=== PATIENT | female | born 1990 | race Caucasian/White ===

== ENCOUNTER 2017-04-07 06:23 | Observation (INO) | payer OTHER ==
[~2017-04-07 06:23] MED LIST: DEXAMETHASONE 10 MG/ML VIAL IVP ONE
[2017-04-07] MEDS ORDERED: LIDOCAINE 1% 5 ML SDV ID PRN (07:24)
[2017-04-07] MEDS ORDERED: LR 1,000 ML IV ONE (07:24)
[2017-04-07] MEDS ORDERED: LIDO/EPI 1% **Not for Epidural 20 ML MDV ONE (07:45)
[2017-04-07] MEDS ORDERED: PROPOFOL 200 MG/20 ML VIAL ONE (07:52)
[2017-04-07] MEDS ORDERED: LIDOCAINE 2% 5 ML SDV ONE ×2 (07:52→10:08)
[2017-04-07] MEDS ORDERED: ROCURONIUM 50 MG/5 ML VIAL ONE (07:53)
[2017-04-07] MEDS ORDERED: fentaNYL 100 MCG/2 ML INJ ONE ×4 (07:54→12:06)
[2017-04-07] MEDS ORDERED: levOFLOXACIN 500 MG/DEXTROSE 100 ML IV ONE (08:00)
[2017-04-07] MEDS ORDERED: MIDAZOLAM 2 MG/2 ML VIAL ONE (08:01)
[2017-04-07] MEDS ORDERED: HYDROCOD/APAP 7.5/325 IN 15ML UDCUP PO PRN (08:10)
[2017-04-07] MEDS ORDERED: ONDANSETRON 4 MG/2 ML VIAL IVP PRN (08:10)
[2017-04-07] MEDS ORDERED: OXYCODONE/APAP 5/325 TAB PO PRN (08:10)
[2017-04-07] MEDS ORDERED: D5W 1/2 NS W/ 20 KCl/L 1,000 ML IV SCH (08:15)
[2017-04-07] MEDS ORDERED: ONDANSETRON 4 MG/2 ML VIAL ONE ×2 (08:36→10:43)
[2017-04-07] MEDS ORDERED: DEXAMETHASONE 4 MG/ML VIAL ONE ×2 (08:36→11:16)
[2017-04-07] MEDS ORDERED: PROMETHAZINE HCL 25 MG/ML INJ ONE (11:16)
[2017-04-07] MEDS ORDERED: METOCLOPRAMIDE 10 MG/2 ML VIAL ONE (11:16)
--- NOTE | 2017-04-07 12:35 | GOP ---
[f rep st] OPERATIVE REPORT DATE OF OPERATION: 04/07/2017 SURGEON: Supa Silva MD ANESTHESIA: General endotracheal. PREOPERATIVE DIAGNOSIS: Thyroid nodule. POSTOPERATIVE DIAGNOSIS: Thyroid nodule. PROCEDURE PLANNED: Total thyroidectomy with possible paratracheal node dissection. PROCEDURE PERFORMED: Total thyroidectomy. FINDINGS: Thyroid lesion frozen section consistent with benign follicular lesion. ESTIMATED BLOOD LOSS: 50 mL. DESCRIPTION OF PROCEDURE: The patient was placed on the operating table in the supine position. After induction of adequate general endotracheal anesthesia, sterile draping was performed. A shoulder roll was placed beneath the patient' s shoulders to extend the neck. Once sterile prep and drape had been performed , infiltration of the area surrounding the proposed incision with 1% lidocaine with 1:100,000 parts epinephrine was performed. An incision was then planned and created, extending approximately 3 cm to either side of the midline. The incision was carried down through the subcutaneous tissues and then through the platysma muscle. Flaps were elevated superiorly and inferiorly in a subplatysmal plane, widely exposing the thyroid region. The vertical midline of the neck was identified. The soft tissues of vertical midline were divided using the Bovie electrocautery. Dissection proceeded further deeply. The nodule of the thyroid isthmus was encountered. Initially, attention was directed to the left thyroid lobe. The strap muscles were reflected off the left thyroid lobe. Further superiorly, the superior vascular pedicle was encountered. This was clamped, cut. The proximal portion was tied with a 2-0 silk suture ligature. The distal portion was tied with a 2- 0 silk tie. Dissection then proceeded along the lateral and posterior aspect of the thyroid in a plane immediately superficial to the thyroid fascia. This allowed for visualization of a least 1 parathyroid gland, which was reflected off the thyroid, maintaining its vascularity. The recurrent laryngeal nerve was identified in the tracheoesophageal groove as it passed the cricoarytenoid joint. This was dissected proximally and distally, keeping the nerve under direct visualization and dividing the soft tissues anterior to this. The soft the tissues of ligament of [place]ays were treated with bipolar electrocautery and sharply divided. The inferior vascular pedicle was then encountered. This clamped, cut, and tied with 2-0 silk ties. Dissection of the thyroid off the trachea was then performed using the Bovie electrocautery. Dissection proceeded past the midline. Then at this point, the left thyroid lobe in continuity with the thyroid nodule was dissected. The thyroid isthmus was then clamped just to the right of the thyroid nodule and the left thyroid lobe with thyroid nodule were sent for frozen section evaluation. This was subsequently returned as follicular lesion, favor benign. The right thyroid lobe was then addressed. The strap musculature was reflected off the right thyroid lobe. Dissection then proceeded further posteriorly. The superior vascular pedicle was encountered. This was clamped, cut. The proximal portion was tied with a 2-0 silk suture ligature. The distal portion was tied with a 2-0 silk tie. During this dissection, a parathyroid gland was encountered and this was dissected and left in situ, maintaining its vascular integrity superiorly. The interior vascular pedicle was encountered. This was clamped, cut, and tied with 2-0 silk ties. Dissection in an immediately supracapsular plane allowed for reflection of further parathyroid off the right thyroid lobe and then in the tracheoesophageal groove the recurrent laryngeal nerve was identified. This was dissected from proximal to distal, again maintaining its integrity and keeping the nerve under direct visualization. The soft tissues of ligament of [place]ays were treated with bipolar electrocautery and then sharply divided. This allowed reflection of the right thyroid lobe off the trachea. Dissection in this region was performed using the Bovie electrocautery and then the right thyroid lobe was delivered. The wound was then reexamined. A number of small bleeders were encountered. These were treated with the bipolar electrocautery. At this point, a 10-L[place] Ryan-Castaneda drain was placed into the wound and sutured into place with 2-0 silk suture ligature. The strap muscles were then reapproximated in the vertical midline utilizing 3-0 Vicryl sutures. The deep layer closure of the wound utilizing interrupted 4-0 Monocryl sutures was performed and 5-0 Prolene was used to perform skin closure. At this point, a sterile pressure dressing was applied after the neck had been cleansed. The patient was then awakened, transferred to postanesthesia recovery in stable condition. FLUIDS REPLACED: 750 mL. COMPLICATIONS: None. /[id number]/MODL MTDD
[2017-04-07] MEDS: DEXAMETHASONE 4 MG/ML VIAL IVP SCH ×2 (14:48→21:52)
[2017-04-07 16:28] LABS: IONIZED CALCIUM 1.11 MMOL/L (1.12-1.30)
--- NOTE | 2017-04-07 17:10 | SOAPPROG ---
SOAP Progress Note Assessment/Plan: pt s/p total thyroidectomy today. Ca stable at 1.11. No numbness or tingling. voice strong. Dressing in palce. Serous drainage in bulb. Plan:Pt seen by Dr. Silva. Doing well post op. 04/07/17 17:08 Objective: Vital Signs Temp Pulse Resp BP Pulse Ox 36.6 C 107 H 16 111/77 99 04/07/17 16:17 04/07/17 16:17 04/07/17 16:17 04/07/17 16:17 04/07/17 16:17 04/06/17 04/07/17 04/08/17 05:59 05:59 05:59 Intake Total 1500 Output Total 1090 Balance 410 ICD10 Worksheet Patient Problems: Problems Problem Status Onset Thyroid adenoma Acute - ICD10 Problem Qualifiers (1) Thyroid adenoma
[2017-04-07 19:03] VITALS: RESP 14
[2017-04-07] MEDS: levETIRAcetam 500 MG TAB PO SCH (20:37)
[2017-04-07 21:55] LABS: IONIZED CALCIUM 1.12 MMOL/L (1.12-1.30)
[2017-04-08 05:25] LABS: IONIZED CALCIUM 1.07 MMOL/L (1.12-1.30)
[2017-04-08] MEDS: levETIRAcetam 500 MG TAB PO SCH (06:18)
[2017-04-08] MEDS: DEXAMETHASONE 4 MG/ML VIAL IVP SCH (06:19)
[2017-04-08 08:11] VITALS: BP 90/70; PULSE 106; TEMP 98; O2SAT 96
--- NOTE | 2017-04-08 08:21 | SOAPPROG ---
SOAP Progress Note Assessment/Plan: pt s/p total thyroidectomy today. Ca was 1.07 at 5am. . No numbness or tingling. voice strong. Dressing in place. Serous drainage in bulb. drain removed. Dressing replaced. Plan:Pt s/p total thyroid. Doing great. She will take Ca tid .Discussed post op care. F/u next week. 04/07/17 17:08 04/08/17 08:20 Objective: Vital Signs Temp Pulse Resp BP Pulse Ox 36.6 C 106 H 14 90/70 L 96 04/08/17 08:08 04/08/17 08:08 04/08/17 08:08 04/08/17 08:08 04/08/17 08:08 04/07/17 04/08/17 04/09/17 05:59 05:59 05:59 Intake Total 2747 Output Total 1600 Balance 467 ICD10 Worksheet Patient Problems: Problems Problem Status Onset Thyroid adenoma Acute - ICD10 Problem Qualifiers (1) Thyroid adenoma
== END 2017-04-08 10:10 | disposition home or self-care (01) ==
LOC: F3E 06:23
PROVIDERS: ADMIT Otolaryngology; ATTEND Otolaryngology
PROC: 0GTK0ZZ Resection of Thyroid Gland, Open Approach (ICD-10-PCS; principal; 2017-04-07 08:00)
DX: E04.1 Nontoxic single thyroid nodule (principal)
CPT/HCPCS: 60240; G0378; J1100; J1956; J2250; J2405; J2550; J2704; J2765; J3010